=== PATIENT | male | born 1990 | race American Indian/Alaskan Native ===

== ENCOUNTER 2017-06-18 21:37 | Emergency (ER) | payer OTHER ==
[2017-06-19 03:55] VITALS: BP 115/77
[2017-06-19] MEDS ORDERED: NORCO 5/325 PO ONE (04:02)
[2017-06-19] MEDS ORDERED: FLEXERIL PO ONE (04:02)
--- NOTE | 2017-06-19 04:10 | Emergency Department Report ---
ED Lower Extremity HPI - General Chief Complaint: Extremity Injury, Lower Stated Complaint: LEFT FOOT INJURY Source: patient Mode of arrival: Ambulatory Limitations: No Limitations - Related Data Allergies Allergy/AdvReac Type Severity Reaction Status Date / Time No Known Allergies Allergy Unverified 06/18/17 21:54 ED Review of Systems ROS: Stated complaint: LEFT FOOT INJURY Other details as noted in HPI ED Past Medical Hx - Past Medical History Previous Medical History?: No - Surgical History Past Surgical History?: No - Social History Smoking Status: Never Smoker Substance Use Type: None ED Physical Exam - General Limitations: No Limitations ED Course Vital Signs 06/18/17 06/19/17 21:52 03:37 Temperature 99.2 F 97.7 F Pulse Rate 77 49 L Respiratory 16 14 Rate Blood Pressure 123/82 115/77 O2 Sat by Pulse 98 100 Oximetry Critical care attestation.: If time is entered above; I have spent that time in minutes in the direct care of this critically ill patient, excluding procedure time. ED Disposition Condition: Stable Referrals: PRIMARY CARE [Primary Care Provider] - 3-5 Days
--- NOTE | 2017-06-19 04:38 | XRay Report ---
FINAL REPORT PROCEDURE: XR FOOT 3+V LT TECHNIQUE: Left foot radiographs, AP, lateral, and oblique views. CPT 84158 HISTORY: crush injury to foot COMPARISON: No prior studies are available for comparison. FINDINGS: Fracture (s) and/or Dislocation(s): There is a nondisplaced fracture of the distal aspect of the 1st distal phalanx.. Alignment: Normal . Joint space(s): Normal . Soft tissues: There is soft tissue swelling of the 1st digit. There are 2 radiopaque densities in the soft tissues of the 1st digit which could be foreign bodies.. Bone mineralization: Normal. There is an osteoma in the calcaneus. Foreign bodies: None . Calcaneal spurring: There is small calcaneal spurs.. IMPRESSION: There is a nondisplaced fracture of the distal aspect of the 1st distal phalanx.. There is soft tissue swelling of the 1st digit. There are 2 radiopaque densities in the soft tissues of the 1st digit which could be foreign bodies..
== END 2017-06-19 06:00 | disposition home or self-care (01) ==
LOC: ED 21:37
DX: S99.922A Unspecified injury of left foot, initial encounter (principal); X58.XXXA Exposure to other specified factors, initial encounter; Y93.9 Activity, unspecified; Y92.9 Unspecified place or not applicable; Y99.9 Unspecified external cause status

== ENCOUNTER 2017-09-09 09:09 | Emergency (ER) | payer OTHER ==
[2017-09-09 10:19] VITALS: BP 123/51
[2017-09-09 13:05] LABS: Bilirubin,Urine NEG (Negative); Blood,Urine NEG (Negative); Ketones,Urine NEG (Negative); Leukocyte Esterase,Urine NEG (Negative); Mucus,Urine FEW /HPF; Nitrite,Urine NEG (Negative); Protein,Urine <15 mg/dL mg/dL (Negative); Urobilinogen,Urine < 2.0 mg/dL (<2.0)
[2017-09-09] MEDS ORDERED: XYLOCAINE 1% MPF 5 mL INFILTRATI ONE (14:15)
[2017-09-09] MEDS ORDERED: ROCEPHIN IM ONE (14:15)
[2017-09-09] MEDS ORDERED: ZITHROMAX PO ONE (14:15)
--- NOTE | 2017-09-09 14:15 | Emergency Department Report ---
ED Male HPI - General Chief complaint: Urogenital-Male Stated complaint: ITCHING/RASH Time Seen by Provider: 09/09/17 12:11 Source: patient Mode of arrival: Ambulatory Limitations: No Limitations - History of Present Illness Initial comments: This is a 27-year-old male nontoxic, well nourished in appearance, no acute signs of distress presents to the ED with c/o of note itching constantly. He stated he had unprotected sex 2 weeks ago and developing symptoms. Patient stated his partner is diagnosed with gonorrhea. Patient denies any penile discharge, testicular pain, testicular swelling, penile lesions, penile ulcers, fever, chills, nausea, vomiting, chest pressure. Patient denies any allergies or past medical history. MD Complaint: other (penile itching) -: week(s) (1) Location: penis Radiation: none Severity: mild Severity scale (0 -10): 4 Quality: other (itching) Consistency: constant Improves with: none Worsens with: none new medication denies other symptoms. denies: discharge, swelling, mass, rash, urinary retention, blood in urine, dysuria, fever, nausea/vomiting, incontinence - Related Data Sexually active: Yes Previous Rx's Medication Instructions Recorded Last Taken Type Meloxicam [Mobic] 7.5 mg PO QDAY #7 tablet 06/19/17 Unknown Rx methOCARBAMOL [Robaxin TAB] 500 mg PO TID #21 tab 06/19/17 Unknown Rx Allergies Allergy/AdvReac Type Severity Reaction Status Date / Time No Known Allergies Allergy Unverified 06/18/17 21:54 ED Review of Systems ROS: Stated complaint: ITCHING/RASH Other details as noted in HPI Constitutional: denies: chills, fever Eyes: denies: eye pain, eye discharge, vision change ENT: denies: ear pain, throat pain Respiratory: denies: cough, shortness of breath, wheezing Cardiovascular: denies: chest pain, palpitations Endocrine: no symptoms reported Gastrointestinal: denies: abdominal pain, nausea, diarrhea Genitourinary: denies: urgency, dysuria Musculoskeletal: denies: back pain, joint swelling, arthralgia Skin: denies: rash, lesions Neurological: denies: headache, weakness, paresthesias Psychiatric: denies: anxiety, depression Hematological/Lymphatic: denies: easy bleeding, easy bruising ED Past Medical Hx - Past Medical History Previous Medical History?: No - Surgical History Past Surgical History?: No - Social History Smoking Status: Current Every Day Smoker Substance Use Type: None - Medications Home Medications: Home Medications Medication Instructions Recorded Confirmed Last Taken Type Meloxicam [Mobic] 7.5 mg PO QDAY #7 tablet 06/19/17 Unknown Rx methOCARBAMOL [Robaxin TAB] 500 mg PO TID #21 tab 06/19/17 Unknown Rx ED Physical Exam - General Limitations: No Limitations General appearance: alert, in no apparent distress - Head Head exam: Present: atraumatic, normocephalic - Eye Eye exam: Present: normal appearance - ENT ENT exam: Present: mucous membranes moist - Neck Neck exam: Present: normal inspection - Respiratory Respiratory exam: Present: normal lung sounds bilaterally. Absent: respiratory distress - Cardiovascular Cardiovascular Exam: Present: regular rate, normal rhythm. Absent: systolic murmur, diastolic murmur, rubs, gallop - GI/Abdominal GI/Abdominal exam: Present: soft, normal bowel sounds - Rectal Rectal exam: Present: deferred - exam: Present: normal inspection. Absent: testicular tenderness, urethral discharge, scrotal swelling, vertical testicular lie External exam: Present: normal external exam, other. Absent: erythema, swelling , lesions, lacerations, ecchymosis, bleeding - Extremities Exam Extremities exam: Present: normal inspection - Back Exam Back exam: Present: normal inspection - Neurological Exam Neurological exam: Present: alert, oriented X3 - Psychiatric Psychiatric exam: Present: normal affect, normal mood - Skin Skin exam: Present: warm, dry, intact, normal color. Absent: rash ED Course Vital Signs 09/09/17 10:16 Temperature 98.7 F Pulse Rate 57 L Respiratory 20 Rate Blood Pressure 123/51 O2 Sat by Pulse 100 Oximetry - Reevaluation(s) Reevaluation #1: 09/09/17 14:14 Patient is speaking in full sentences with no signs of distress noted. ED Medical Decision Making - Medical Decision Making 27-year-old male that presents for possible STD exposure. Patient is stable and was examined by me. UA obtained within normal limits. GC pending. Patient received Rocephin and azithromycin for treatment as per patient request. Patient was instructed to return in 3 days to obtain results of her Chlamydia. Patient was instructed Follow-up with a primary care doctor in 3-5 days or if symptoms worsen and continue return to emergency room as soon as possible. At time time of discharge, the patient does not seem toxic or ill in appearance. No acute signs of distress noted. Patient agrees to discharge treatment plan of care. No further questions noted by the patient. Critical care attestation.: If time is entered above; I have spent that time in minutes in the direct care of this critically ill patient, excluding procedure time. ED Disposition Clinical Impression: Possible exposure to STD Disposition: DC-01 TO HOME OR SELFCARE Is pt being admited?: No Does the pt Need Aspirin: No Condition: Stable Instructions: Safe Sex (ED) Additional Instructions: Follow-up with a primary care doctor in 3-5 days or if symptoms worsen and continue return to emergency room as soon as possible. Return in 3 days to obtain results of gonorrhea and chlamydia Referrals: PRIMARY CARE, [Primary Care Provider] - 3-5 Days BASHIR AMBROCIO MD [Staff Physician] - 3-5 Days [facility] [Outside] - 3-5 Days [facility] [Outside] - 3-5 Days Forms: Work/School Release Form(ED)
== END 2017-09-09 14:58 | disposition home or self-care (01) ==
LOC: ED 09:09
DX: N48.89 Other specified disorders of penis (principal); F17.200 Nicotine dependence, unspecified, uncomplicated
CPT/HCPCS: 81001; 87591; 96372; 99283; J0696